=== PATIENT | male | born 1995 | race Caucasian/White ===

== ENCOUNTER 2018-02-21 23:01 | Emergency (ER) | payer BC ==
[~2018-02-21] VITALS: Ht 177.8 cm; Wt 78.2 kg
[~2018-02-21 23:01] MED LIST: IBUP-103 PO
[2018-02-21 23:12] VITALS: Ht 177.8 cm; Wt 78.2 kg
[2018-02-21] MEDS ORDERED: LIDOCAINE/EPINEPH/TETRACAINE 1 EA SYR EXT STA (23:27)
[2018-02-21] MEDS ORDERED: LIDO/EPINEPHRINE/SOD BICARB 20 ML VIAL INFIL ONE (23:30)
[2018-02-22 00:28] VITALS: BP 135/97; PULSE 95; TEMP 36.4; O2SAT 97
--- NOTE | 2018-02-22 00:28 | EMERGENCY ROOM VISIT NOTE ---
ED Visit Note First contact with patient: 23:13 CHIEF COMPLAINT: Laceration above left eyebrow 90 minutes ago HISTORY OF PRESENT ILLNESS: Patient is a healthy 22-year-old male who presents the emergency department for evaluation of a forehead laceration that he sustained at home about 90 minutes ago. Patient admits to drinking alcohol this evening and states that he felt "because I was too drunk." The patient does have a male friend who is here with him who helps to supplement the history. The patient does not remember falling, does not know why he fell, but does not believe that he tripped. He fell down to the ground, striking his head on the floor. The fall was unwitnessed and it is unclear whether there was any loss of consciousness. The patient was attended to by friends a few minutes after the incident. They cleaned off his forehead and applied a bandage. The patient reports that he cannot remember the hour around the fall. He notes a mild frontal headache at the site of his laceration that he rates a 3/10. He denies any neck pain. REVIEW OF SYSTEMS: Review of systems as per HPI. All other systems reviewed were negative. 10 systems reviewed. PMH: Electronic medical records are reviewed and summarized as above/below. See Problem List. His tetanus is up-to-date. SOCIAL HISTORY: Patient is a college student who lives locally with roommates. Non-smoker, social EtOH. PHYSICAL EXAM: Vital Signs: Reviewed Nurse's notes. CONSTITUTIONAL: Patient is a pleasant, cooperative 22-year-old male who is awake and alert and in no acute distress. He is ambulatory in the exam room. He does smell of alcohol, very slight slurring of speech noted. HEENT: Normocephalic, atraumatic. Pupils equal, round, reactive to light and accommodation. EOMs intact without nystagmus. Sclera are anicteric. Tympanic membranes intact, with normal landmarks. External canals are clear. No hemotympanum or Sky sign. Oral and nasopharynx are clear. No CSF rhinorrhea. Mucous membranes are moist. FACE: 2 cm laceration above the left eyebrow. Superficial abrasions noted over the bridge of the nose. NECK: Supple, nontender, no lymphadenopathy. Full range of motion. EXTREMITIES: No cyanosis, edema, joint tenderness or swelling. No deformity. NEUROLOGICAL: Alert and oriented x4. Cranial nerves 2 through 12, sensation and strength grossly intact. Gait is normal. EMERGENCY DEPARTMENT COURSE: The patient was seen and evaluated as above. His old records were reviewed. Given the fall, with the associated level of intoxication, and reported amnesia with unclear loss of consciousness, I did discuss performing a head CT with the patient and he was in agreement. The wound was anesthetized with LET gel for 30 minutes. The affected area was cleaned with chlorhexidine and irrigated with saline. The laceration was explored to its base. There was no foreign body in the wound. The subcu layers were closed with 3, 5-0 PDS sutures, then the skin was closed with 9, 6-0 nylon interrupted sutures. Patient tolerated the procedure well. Bacitracin was applied. Verbal and written wound care and head injury instructions were outlined with the patient. He was discharged home with a sober friend in stable condition. The patient appears to have suffered a fall, likely due to his level of intoxication. His fall was not consistent with syncope and seizure is felt to be unlikely. I do not suspect arrhythmia. Fall could have been mechanical in nature as well. Differential diagnoses also entertained included cerebral contusion, acute intracranial bleed and skull fracture. Head CT per [employer]: no intracranial hemorrhage mass-effect or edema, no skull fracture, left frontal/supraorbital scalp contusion. Medication reconciliation: I attest that I have personally reviewed the patient' s current medication list. Blood pressure screening : Patient was found to have normal blood pressure on screening and does not require follow-up. Problem List Medical Problems: (1) Closed head injury Status: Resolved (2) Concussion Status: Resolved (3) Contusion of left ear Status: Resolved (4) History of multiple concussions Status: Chronic (5) Loss of consciousness Status: Resolved Current/Historical Medications No Active Prescriptions or Reported Meds Allergies Coded Allergies: Amoxicillin (Verified Allergy, Unknown, UNKNOWN, 02/21/18) Azithromycin (Verified Allergy, Unknown, UNKNOWN, 02/21/18) Cefaclor (Verified Allergy, Unknown, unknown, 02/21/18) Clavulanic Acid (Verified Allergy, Unknown, UNKNOWN, 02/21/18) Vital Signs Date Time Temp Pulse Resp B/P (MAP) Pulse Ox O2 Delivery O2 Flow Rate FiO2 02/22/18 00:28 36.4 95 18 135/97 97 Room Air 02/21/18 23:12 36.3 100 18 114/67 94 Room Air Medications Administered Medications (Trade) Dose Ordered Sig/Jennifer Route Start Time Stop Time Status Last Admin Dose Admin Tetracaine/ Epinephrine/ Lidocaine (L.e.t. Gel 4%/ 1:100/0.5%) 1 ea UD STAT EXT 02/21/18 23:27 02/21/18 23:29 DC 02/21/18 23:38 1 EA Departure Information Impression Primary Impression: Forehead laceration Additional Impressions: Fall Alcohol intoxication Prescriptions No Active Prescriptions or Reported Meds Referrals No Doctor, Assigned (PCP) Patient Instructions My [facility] Additional Instructions WOUND CARE INSTRUCTIONS: Keep wound clean and dry. Do not allow any crusting or dried blood to accumulate on sutures. Clean gently with mild soap and water daily. Use an antibiotic ointment for 3-4 days, then let wound dry. Suture removal in 6-7 days. Return sooner for any signs of infection (increasing redness, swelling, drainage). Ice and elevate for swelling and pain. Tylenol 1000 mg every 6 hrs for pain. CONCUSSION DISCHARGE INSTRUCTIONS: What is a concussion? A concussion is a disturbance in the function of the brain caused by a direct or indirect force to the head. It results in a variety of symptoms like: headache, balance problems, nausea, vomiting, vision problems, hearing problems/ringing, drowsiness, irritability, and/or difficulty concentrating or remembering. A concussion may, or may not involve memory problems or loss of consciousness. Concussion instructions: Stop and stay away from ALL physical activity until you are symptom free from: Headaches Balance problems Feeling "dinged" Poor concentration Drowsy Fatigued Rest and avoid strenuous activities for the next few days. Get 8-10 hours of sleep per night. Limit activities that involve significant concentration and attention during this time to speed your recovery. This includes studying, attending school, playing video games, and heavy reading. Your brain needs to rest. Eat right and eat often. Now is the time to feed your brain. Well balanced diets that avoid high sugar foods, sodas, caffeine, etc. are better for your brain. NO ALCOHOL OR DRUGS! Avoid stimulants like caffeine, red bull, mountain dew, "energy" drinks, etc. Tylenol(acetaminophen) may be used for headaches. Use 1000mg every six hours as needed. Avoid using more than 3000mg in a 24 hour period. Avoid anti-inflammatories such as aspirin, ibuprofen, Alleve, naprosyn, Motrin, or Advil as these can interfere with blood clotting and lead to bleeding within the brain after a traumatic injury. Stepwise return to sports for athletes: You may progress to the next step after 24 hours if you are symptom free. If you experience symptoms, you must return to the previous stage and try again after another 24 hours of rest and being symptom free. Best case scenario is full contact game play in 96 hours from the time of injury. Remember repeat concussions are worse than the first. Time invested in recovery will allow for better performance and less downtime in the future. If you have any questions see your technology trainer or make an appointment to see one of the team physicians. 1) No activity, complete rest. Once all symptoms have resolved, report to the team physician or technology trainer to be cleared to progress to step 2. 2) Start light aerobic exercise, such as walking or stationary cycling, no resistance training permitted. 3) Sport specific exercises. Add light resistance slowly. Go slow to allow your body to readapt. 4) Non-contact full speed practice. 5) Full contact practice and/or game play. FOLLOW UP INSTRUCTIONS: You should have a follow up with your family doctor or team physician in 3-5 days regarding your injury. If you had X-rays or CT scanning performed, our Radiologists will review the studies. If important additional findings are discovered you will be notified within 24-48 hours. POST CONCUSSIVE SYNDROME: Occasionally patients can experience a postconcussive syndrome which includes prolonged headaches and memory difficulties. This may occur over the next several days, weeks or rarely, even months. It is important to have a primary care physician follow-up in order to help if the situation develops. Problems could arise over the next 24 to 48 hours. You should not be left alone and MUST go to the hospital immediately if you: -Have a headache that suddenly gets worse. -Are very drowsy or cannot be woken up from sleep. -Can't recognize people or places. -Have repeated vomiting. -Behave unusually, seemed confused, or start acting irritable. -Have a seizure (arms and legs start jerking uncontrollably). -Have weak or numb arms or legs. -Are unsteady on your feet -Experience slurred speech or difficulty speaking. ALCOHOL OVERDOSE INSTRUCTIONS: DO NOT drive, drink alcohol, operate machinery, or perform dangerous activities today. Rest and drink plenty of fluids. Drink alcohol responsibly and only in moderation. Follow up with [facility] this week for a recheck of your current condition. Return to the ER for vomiting, abdominal pain, severe headache, neck pain, vomiting blood or bloody stools, passing out, worsening of your condition, or as needed. Problem Qualifiers Primary Impression: Forehead laceration Encounter type: initial encounter Qualified Codes: S01.81XA - Laceration without foreign body of other part of head, initial encounter Additional Impressions: Fall Encounter type: initial encounter Qualified Codes: W19.XXXA - Unspecified fall, initial encounter Alcohol intoxication Complication of substance-induced condition: uncomplicated Qualified Codes: F10.920 - Alcohol use, unspecified with intoxication, uncomplicated
--- NOTE | 2018-02-22 07:23 | DIAGNOSTIC IMAGING REPORT ---
CT HEAD WITHOUT CONTRAST (CT) CLINICAL HISTORY: Head pain status post trauma COMPARISON STUDY: 12/16/2014 TECHNIQUE: Axial CT of the brain is performed from the vertex to the skull base. IV contrast was not administered for this examination. A dose lowering technique was utilized adhering to the principles of ALARA. CT DOSE: 614.27 mGy.cm FINDINGS: No intra or extra-axial mass lesions are visualized. There is no CT evidence of acute cortical infarction. There is no evidence of midline shift. There is no acute hemorrhage. No calvarial fractures are visualized. There is a left frontal scalp contusion. There is no evidence of pathologic ventricular dilatation. There is no evidence of acute sinusitis IMPRESSION: Left frontal scalp contusion. Otherwise normal noncontrast head CT. Electronically signed by: Antonio Harrison M.D. 02/22/2018 7:22 AM Dictated Date/Time: 02/22/2018 7:21 AM
== END 2018-02-22 00:31 | disposition home or self-care (01) ==
LOC: C.EDB 23:02 → C.EDD 02-22 00:31
DX: S01.81XA Laceration without foreign body of other part of head, initial encounter (principal); F10.920 Alcohol use, unspecified with intoxication, uncomplicated; W19.XXXA Unspecified fall, initial encounter; W22.8XXA Striking against or struck by other objects, initial encounter; Y92.009 Unspecified place in unspecified non-institutional (private) residence as the place of occurrence of the external cause; Z87.820 Personal history of traumatic brain injury; Z88.0 Allergy status to penicillin; Z88.1 Allergy status to other antibiotic agents; Z88.8 Allergy status to other drugs, medicaments and biological substances